=== PATIENT | female | born 1995 | race Caucasian/White ===

== ENCOUNTER 2016-09-27 09:37 | Emergency (ER) | payer BC ==
--- NOTE | 2016-09-27 10:41 | ED ---
Syncope/Near Syncope - History Of Current Complaint Chief Complaint: EDSyncope Time Seen by Provider: 09/27/16 10:01 Hx Obtained From: Patient, Family/News Intern Onset/Duration: Sudden Onset - pt was doing a [employer] exercise for [employer] for miles and suddenly felt faint and was lowered to ground by her S.O. no injury reportes. pt remained partially conscious and was able to sit up after lying flat for few mins pt has not had food or drink since yesterday Timing: Seconds Activity At Onset: Exertion Associated Head Trauma: No Aggravating Factor(s): Nothing Alleviating Factor(s): Spontaneous Resolution Associated Signs And Symptoms: Negative Related History: Similar Episode/Dx as - syncope (also during intense workout and heat - Risk Factors Cardiac Risk Factors: Negative Dysrhythmia Risk Factors: Negative Risk Factor(s): Negative - Allergies/Home Medications Allergies/Adverse Reactions: Allergies Allergy/AdvReac Type Severity Reaction Status Date / Time Amoxicillin Allergy Severe Rash And Verified 09/27/16 09:52 Itching PMH/Surg Hx/FS Hx/Imm Hx Previously Healthy: Yes Endocrine/Hematology History: Denies: Hx Anticoagulant Therapy, Hx Blood Disorders Cardiovascular History: Denies: Hx Congenital Heart Disease, Hx Hypotension, Hx Hypertension Respiratory History: Denies: Hx Asthma GI History: Denies: Hx Diverticulosis, Other GI Disorders History: Denies: Other Problems/Disorders Neurological History: Denies: Other Neuro Impairments/Disorders Psychiatric History: Denies: Hx Anxiety, Hx Depression Infectious Disease History: No Infectious Disease History: Denies: Traveled Outside the [place] in Last 30 Days - Family History Known Family History: Positive: None - Social History Occupation: Student Lives: With Family Alcohol Use: Weekly Substance Use Type: Reports: None Smoking Status (MU): Never Smoked Tobacco - Additional Comments History Additional Comments: LMP: 2 weeks ago, on OBCP Review of Systems Constitutional: Negative Eyes: Negative Cardiovascular: Negative Negative: Palpitations, Chest Pain Respiratory: Negative Negative: Shortness Of Breath, Cough Gastrointestinal: Negative Negative: Abdominal Pain, Vomiting, Diarrhea Genitourinary: Negative Positive: no symptoms reported Musculoskeletal: Negative Skin: Negative Neurological: Negative Negative: Headache, Weakness, Numbness, Slurred Speech Psychological: Normal All Other Systems Reviewed And Are Negative: Yes Physical Exam Triage Information Reviewed: Yes Vital Signs On Initial Exam: Initial Vitals Temp Pulse Resp BP Pulse Ox 97.2 F 87 20 133/60 99 09/27/16 09:42 09/27/16 09:42 09/27/16 09:42 09/27/16 09:42 09/27/16 09:42 Vital Signs Reviewed: Yes Appearance: Positive: Well-Appearing, No Pain Distress, Well-Nourished Skin: Positive: Warm, Skin Color Reflects Adequate Perfusion, Dry Respiratory/Lung Sounds: Positive: Clear to Auscultation Cardiovascular: Positive: Normal, RRR, Pulses are Symmetrical in both Upper and Lower Extremities Abdomen Description: Positive: Nontender, No Organomegaly Musculoskeletal: Positive: Normal Neurological: Positive: Normal, Sensory/Motor Intact, Alert, Oriented to Person Place, Time Psychiatric: Positive: Normal - Gina Coma Scale Coma Scale Total: 15 Diagnostics - Vital Signs Vital Signs Temp Pulse Resp BP Pulse Ox 09/27/16 09:42 97.2 F 87 20 133/60 99 - Laboratory Result Diagrams: 09/27/16 10:00 09/27/16 10:00 Lab Statement: Any lab studies that have been ordered have been reviewed, and results considered in the medical decision making process. Re-Evaluation - Re-Evaluation First Eval Change: Improved - standing at bedside, states feeling well, was able to void Course/Dx - Diagnoses Differential Diagnosis/HQI/PQRI: Positive: Dysrhythmia, Hypoglycemia, Hypovolemia, Vasovagal Episode, Other - Provider Diagnoses: Vasovagal episode Discharge - Discharge Plan Condition: Improved Disposition: HOME Patient Education Materials: Syncope (ED) Referrals: Non Staff,Doctor [Primary Care Provider] - Additional Instructions: keep yourself well hydrated eat regular diet rest today return to ERif your symptoms worse at anytime
[2016-09-27] MEDS ORDERED: NS 0.9% 1000 ML* 1,000 ML BOLUS SCH (10:45)
[2016-09-27 10:50] LABS: Hematocrit 40 % (35-47); Hemoglobin 13.5 g/dl (12.0-16.0); Mean Corpuscular HGB Conc 34 g/dl (31-36); Mean Corpuscular Hemoglobin 31 pg (27-31); Mean Corpuscular Volume 91 fL (80-97); Mean Platelet Volume 8 um3 (7.4-10.4); Red Cell Distribution Width 12 % (10.5-15); White Blood Count 15.8 10^3/ul (3.5-10.8)
[2016-09-27 11:00] LABS: Albumin 3.9 g/dL (3.2-5.2); Calcium 8.6 mg/dL (8.6-10.3); EGFR African American 103.3 (>60); EGFR Non-African American 80.4 (>60); Globulin 2.8 g/dL (2-4); Potassium 3.8 mmol/L (3.5-5.0); Total Bilirubin 0.6 mg/dL (0.2-1.0); Total Protein 6.7 g/dL (6.4-8.9)
[2016-09-27 12:38] VITALS: BP 118/68
== END 2016-09-27 12:30 | disposition home or self-care (01) ==
LOC: ED 09:37
DX: R55 Syncope and collapse (principal)
CPT/HCPCS: 36415; 80053; 85025; 93005; 99283